=== PATIENT | female | born 1955 | race Caucasian/White ===

== ENCOUNTER 2018-05-12 20:39 | Inpatient (IN) | payer OTHER ==
[~2018-05-12] VITALS: Ht 162.6 cm; Wt 67.1 kg
[~2018-05-12 20:39] MED LIST: ALBU2.5V5 NEB; CHLO25TA10 PO; CHOL400C2 PO; CLON0.5T11 PO; DOXY150T PO; FAMO20TA5 PO; GUAI600T79 PO; METO-239 PO; NICO1PAT2 TP; OMEG300C PO; PRED-220 PO; PROM118S5 PO; VITA100T5 PO
[2018-05-12] MEDS ORDERED: ALBUTEROL SULFATE 2.5 MG/3 ML NEBU. CONT NEB ONE (21:00)
--- NOTE | 2018-05-12 21:00 | PHYS DOC ---
Adult General Chief Complaint Chief Complaint: SHORTNESS OF BREATH HPI HPI Patient is a 62 year old female with history of COPD, stage IV lung cancer currently not receiving chemotherapy or radiation therapy and awaiting health care consult presents with increased shortness of breath, and nonproductive cough not improved by routine breathing treatments at home. Patient reports increased home O2 requirements. Patient typically takes 2 days during daytime and feels increased to increase more. Denies fever, chills, nausea vomiting or sweats. Reports chronic right-sided chest wall pain secondary to lung CA. Patient is anticoagulated and on Xarelto. She is currently taking Augmentin for treatment of bronchitis. Patient's oncologist practices at [facility]. Patient does not currently have a take off man. Reports chronic edema with increased leg swelling predominantly on left. Patient's accompanied at bedside by her daughter and sister. [] Review of Systems Review of Systems Review symptoms as per history of present illness. All other systems were reviewed and found to be within normal limits, except as documented in this note. Current Medications Current Medications Current Medications Medications (Trade) Dose Ordered Sig/Jyoti Start Time Stop Time Status Last Admin Dose Admin Albuterol Sulfate (Ventolin Neb Soln) 10 mg 1X ONCE 05/12/18 21:00 05/12/18 21:01 DC 05/12/18 21:03 10 MG Info (CONTRAST GIVEN -- Rx MONITORING) 1 each PRN DAILY PRN 05/12/18 22:45 05/14/18 22:44 Iohexol (Omnipaque 350 Mg/ml) 100 ml 1X ONCE 05/12/18 22:45 05/12/18 22:46 DC Lorazepam (Ativan) 1 mg 1X ONCE 05/12/18 21:45 05/12/18 21:46 DC 05/12/18 21:46 1 MG Allergies Allergies Allergies Coded Allergies Type Severity Reaction Last Updated Verified Sulfa (Sulfonamide Antibiotics) Adverse Reaction Severe 03/11/14 Yes Physical Exam Physical Exam Constitutional: Well developed, chronically ill appearing, supplemental oxygen- dependent. [] HENT: Normocephalic, atraumatic, bilateral external ears normal, oropharynx moist, no oral exudates, nose normal. [] Eyes: PERRLA, EOMI, conjunctiva normal. [] Neck: Normal range of motion. [] Cardiovascular:Heart rate regular rhythm, no murmur, bilateral peripheral edema , significantly more swollen the left leg comparison to right [] Lungs & Thorax: Patient's nonlabored, mild tachypnea, coarse diminished breath sounds distally decreased on right, dry nonproductive cough.[] Abdomen: Bowel sounds normal, soft, no tenderness. [] Skin: Warm, dry. [] Back: No tenderness. [] Extremities: No tenderness, no obvious cellulitis. [] Neurologic: Alert and oriented X 3, normal motor function, normal sensory function, no focal deficits noted. [] Psychologic: Affect normal, judgement normal, mood normal. [] Current Patient Data Vital Signs Vital Signs Date Time Temp Pulse Resp B/P (MAP) Pulse Ox O2 Delivery O2 Flow Rate FiO2 05/12/18 21:51 113 150/77 (101) 100 Nasal Cannula 4.0 05/12/18 20:45 98.2 23 98.2 Lab Values Laboratory Tests Test 05/12/18 21:30 White Blood Count 4.7 x10^3/uL (4.0-11.0) Red Blood Count 3.77 x10^6/uL (3.50-5.40) Hemoglobin 10.4 g/dL (12.0-15.5) L Hematocrit 32.1 % (36.0-47.0) L Mean Corpuscular Volume 85 fL (79-100) Mean Corpuscular Hemoglobin 28 pg (25-35) Mean Corpuscular Hemoglobin Concent 33 g/dL (31-37) Red Cell Distribution Width 15.7 % (11.5-14.5) H Platelet Count 189 x10^3/uL (140-400) Neutrophils (%) (Auto) 70 % (31-73) Lymphocytes (%) (Auto) 17 % (24-48) L Monocytes (%) (Auto) 10 % (0-9) H Eosinophils (%) (Auto) 3 % (0-3) Basophils (%) (Auto) 1 % (0-3) Neutrophils # (Auto) 3.3 x10^3uL (1.8-7.7) Lymphocytes # (Auto) 0.8 x10^3/uL (1.0-4.8) L Monocytes # (Auto) 0.5 x10^3/uL (0.0-1.1) Eosinophils # (Auto) 0.1 x10^3/uL (0.0-0.7) Basophils # (Auto) 0.0 x10^3/uL (0.0-0.2) Sodium Level 139 mmol/L (136-145) Potassium Level 3.4 mmol/L (3.5-5.1) L Chloride Level 99 mmol/L (98-107) Carbon Dioxide Level 31 mmol/L (21-32) Anion Gap 9 (6-14) Blood Urea Nitrogen 10 mg/dL (7-20) Creatinine 0.7 mg/dL (0.6-1.0) Estimated GFR (Cockcroft-Gault) 84.2 BUN/Creatinine Ratio 14 (6-20) Glucose Level 97 mg/dL (70-99) Calcium Level 10.4 mg/dL (8.5-10.1) H Total Bilirubin 0.5 mg/dL (0.2-1.0) Aspartate Amino Transferase (AST) 49 U/L (15-37) H Alanine Aminotransferase (ALT) 38 U/L (14-59) Alkaline Phosphatase 106 U/L (46-116) Troponin I Quantitative < 0.017 ng/mL (0.000-0.055) IB-Ajg-I-Type Natriuretic Peptide 233 pg/mL (0-124) H Total Protein 7.8 g/dL (6.4-8.2) Albumin 3.2 g/dL (3.4-5.0) L Albumin/Globulin Ratio 0.7 (1.0-1.7) L Laboratory Tests 05/12/18 21:30 Laboratory Tests 05/12/18 21:30 EKG EKG [EKG: Reviewed] Radiology/Procedures Radiology/Procedures [Chest x-ray: Pulmonary mass right lung rios per radiology report CT angio chest: Canceled] due to patient's poor tolerance of lying supine Course & Med Decision Making Course & Med Decision Making Pertinent Labs and Imaging studies reviewed. (See chart for details) [COPD exacerbation with progression of underlying tumor burden. Concern for possible complications including post obstructive pneumonia, pulmonary embolus, etc... However, patient was not adequately able to assessed due to intolerance of CT. . Antibiotics given. Patient will be continued and Xarelto. Hospitalist service to admit with beta pulmonology consult in a.m. Courtesy bridge orders provided. Dragon Disclaimer Dragon Disclaimer This electronic medical record was generated, in whole or in part, using a voice recognition dictation system. Departure Departure Impression: Primary Impression: COPD exacerbation Additional Impression: Lung cancer Disposition: ADMITTED INPATIENT Admitting Physician: Other Condition: GUARDED (Dr. Lamar) Referrals: ALIDA SOSA (PCP) Problem Qualifiers ABNER AREVALO DO May 12, 2018 21:00
--- NOTE | 2018-05-12 21:02 | RAD ---
Indication:SOA, CHEST PAIN TECHNIQUE:Portable AP chest X-ray COMPARISON:CT chest from 03/08/2014 FINDINGS: Right chest wall Chemo-Port is seen with its tip in the SVC. Heart is normal in size. Large right suprahilar mass is again seen. Lungs are hyperinflated. Diffuse interstitial opacities are seen in the right lung. No pneumothorax or large. Effusion. Visualized bony thorax within normal limits. IMPRESSION: 1. Redemonstration of right suprahilar mass. 2. Trace right pleural effusion. 3. Interstitial opacities in the right lung may be secondary to lymphangitic spread of malignancy, edema or infection. Electronically signed by: Raymundo Brown DO (05/12/2018 8:59 PM) [facility]
[2018-05-12 21:40] LABS: BASO % 1 % (0-3); EOS # 0.1 x10^3/uL (0.0-0.7); EOS % 3 % (0-3); HEMATOCRIT 32.1 % (36.0-47.0); HEMOGLOBIN 10.4 g/dL (12.0-15.5); LYMPH # 0.8 x10^3/uL (1.0-4.8); LYMPH % 17 % (24-48); MEAN CORPUSCULAR HEMOGLOBIN 28 pg (25-35); MEAN CORPUSCULAR HGB CONC 33 g/dL (31-37); MEAN CORPUSCULAR VOLUME 85 fL (79-100); MONO # 0.5 x10^3/uL (0.0-1.1); MONO % 10 % (0-9); NEUT # 3.3 x10^3uL (1.8-7.7); NEUT % 70 % (31-73); PLATELET COUNT 189 x10^3/uL (140-400); RED BLOOD COUNT 3.77 x10^6/uL (3.50-5.40); RED CELL DISTRIBUTION WIDTH 15.7 % (11.5-14.5); WHITE BLOOD COUNT 4.7 x10^3/uL (4.0-11.0)
[2018-05-12] MEDS ORDERED: LORazepam 1 MG TABLET PO ONE (21:45)
[2018-05-12 21:48] LABS: CALCIUM 10.4 mg/dL (8.5-10.1); CREATININE 0.7 mg/dL (0.6-1.0); GFR 84.2; POTASSIUM 3.4 mmol/L (3.5-5.1)
[2018-05-12 21:54] LABS: ALBUMIN 3.2 g/dL (3.4-5.0); ALBUMIN/GLOBULIN RATIO 0.7 (1.0-1.7); TOTAL BILIRUBIN 0.5 mg/dL (0.2-1.0); TOTAL PROTEIN 7.8 g/dL (6.4-8.2)
[2018-05-12] MEDS ORDERED: CONTRAST GIVEN. MC PRN (22:45)
[2018-05-12] MEDS ORDERED: IOHEXOL 350 MG/ML 100 ML VIAL. IV ONE (22:45)
[2018-05-12] MEDS ORDERED: DOXYCYCLINE HYCLATE 100 MG in IV DEXTROSE 5% 100ML 100 ML IV ONE (23:45)
[2018-05-12] MEDS ORDERED: ONDANSETRON PF 4 MG/2 ML VIAL. IV PRN (23:45)
[2018-05-13] VITALS (7 sets, daily range): BP systolic 107–172; BP diastolic 63–91
[2018-05-13] MEDS: IV NORMAL SALINE 1000ML BAG 1,000 ML IV SCH ×2 (00:56→12:38)
[2018-05-13] MEDS: IPRATRPIUM/ALBUTEROL 0.5/2.5MG 3 ML NEBU. NEB SCH ×6 (02:28→20:41)
[2018-05-13] MEDS ORDERED: BUDE0.5A IH (02:38)
[2018-05-13] MEDS ORDERED: IBUP-1027 PO (02:38)
[2018-05-13] MEDS ORDERED: GUAI600T47 PO (02:38)
[2018-05-13] MEDS ORDERED: RIVA20TA2 PO (02:38)
[2018-05-13] MEDS ORDERED: AMLO5TAB10 PO (02:38)
[2018-05-13] MEDS ORDERED: LACT1CAP6 PO (02:38)
[2018-05-13] MEDS ORDERED: ACET500T68 PO (02:38)
[2018-05-13] MEDS ORDERED: CHOL20009 PO (02:38)
[2018-05-13] MEDS ORDERED: FURO20TA3 PO (02:38)
[2018-05-13] MEDS ORDERED: LORA1TAB PO (02:38)
[2018-05-13] MEDS ORDERED: POTA20LI27 AC (02:38)
[2018-05-13] MEDS ORDERED: ATOR10TA60 PO (02:38)
[2018-05-13] MEDS ORDERED: METF500T16 PO (02:38)
[2018-05-13] MEDS ORDERED: OXYC5TAB4 PO (02:38)
[2018-05-13] MEDS ORDERED: LOSA-73 PO (02:38)
[2018-05-13] MEDS ORDERED: ALBU2.5V8 INH (02:38)
[2018-05-13] MEDS: methylPREDNISolone SOD SUCC PF 40 MG/ML VIAL. IV SCH ×3 (06:21→21:22)
[2018-05-13] MEDS ORDERED: ALBUTEROL SULFATE 2.5 MG/3 ML NEBU. NEB PRN ×2 (07:45→08:00)
[2018-05-13] MEDS ORDERED: IPRATRPIUM/ALBUTEROL 0.5/2.5MG 3 ML NEBU. NEB ONE (08:00)
[2018-05-13] MEDS ORDERED: methylPREDNISolone SOD SUCC PF 125 MG/2 ML VIAL. IV ONE (08:00)
[2018-05-13] MEDS: FUROSEMIDE 20 MG/2 ML VIAL. IVP SCH ×2 (08:01→14:20)
[2018-05-13] MEDS: DOXYCYCLINE HYCLATE 100 MG in IV DEXTROSE 5% 100ML 100 ML IV SCH ×2 (08:05→21:22)
--- NOTE | 2018-05-13 08:06 | PDOC ---
Provider Note Provider Note [id number] acute on chronic resp fail abnl cxr ae of copd acute bronchitis see orders WILLOW JEFFERSON MD May 13, 2018 08:06
--- NOTE | 2018-05-13 08:34 | CONS ---
DATE OF CONSULTATION: 05/13/2018 I was asked to see this 62-year-old lady for acute on chronic respiratory failure. HISTORY OF PRESENT ILLNESS: She has a history of [id number]-[id number] smoking, continues to smoke about 1 pack per day. She was diagnosed with lung cancer in 2014, had chemo and radiation. She had recurrence of her lung cancer about a year ago. She has been followed with oncologist at [facility]. She was given chemotherapy, which did not work. Then, she was enrolled in a trial, which did not work. She is off any treatment now. Palliative care consult was recommended. She has had increased cough. She is not able to cough up sputum. She denies pain. She has shortness of breath. She is on oxygen 3 liters per minute via nasal cannula continuously at home. She denies runny nose, nasal congestion, or gastroesophageal reflux symptoms. She has been on Xarelto for SVC clot. She has had left lower extremity edema for some time. PAST MEDICAL HISTORY: Stage 4 lung cancer, COPD, hypertension, diabetes mellitus. ALLERGIES: SULFA. MEDICATIONS: Currently, she is on DuoNeb q.i.d., doxycycline, Solu-Medrol 40 mg every 8 hours. SOCIAL HISTORY: History of 22-omtc-hzft smoking, continues to smoke 1 pack per day. FAMILY HISTORY: Mother had lung cancer. REVIEW OF SYSTEMS: As mentioned as above, other systems otherwise negative. PHYSICAL EXAMINATION: GENERAL: This is a frail lady. VITAL SIGNS: Her O2 saturation on 4 liters of oxygen is 96%, respiratory rate 22, heart rate 100, blood pressure 125/68, temperature 97.6. HEENT: Normocephalic, atraumatic. Pupils are equal, round, reactive to light. Throat is clear. Nose is clear. NECK: There is no lymphadenopathy or thyromegaly. CARDIOVASCULAR: Regular rate and rhythm. PMI is nondisplaced. CHEST: Inspection is normal. LUNGS: There is bilateral end-expiratory wheezing, dullness at the right base, rhonchi. ABDOMEN: Soft. Bowel sounds are good. There is no mass. EXTREMITIES: There is left lower extremity edema. NEUROLOGIC: Alert and oriented. SKIN: Warm with chronic changes. I reviewed the following lab data: Chest x-ray shows right suprahilar mass, small right pleural effusion, infiltrate in right lung. WBC 4.7, hemoglobin 10.4, platelet 189. Sodium 139, potassium 3.4, chloride 99, CO2 of 31, glucose 97, BUN 10, creatinine 0.7. BNP 233. Troponin less than 0.017. IMPRESSION: 1. Acute on chronic respiratory failure secondary to acute exacerbation of chronic obstructive pulmonary disease, acute bronchitis, progressing lung cancer versus others. 2. Abnormal chest x-ray. 3. Acute exacerbation of chronic obstructive pulmonary disease. 4. Acute bronchitis. 5. Tobacco habituation. 6. Hypertension. 7. Diabetes mellitus. PLAN AND RECOMMENDATION: 1. Titrate FiO2 to keep O2 saturation 92%. 2. I will increase bronchodilators to every 4 hours. 3. Add inhaled corticosteroid. 4. I gave her Solu-Medrol 80 mg IV 1 dose. We will continue 40 mg every 4 hours. 5. Continue doxycycline and Rocephin. 6. Continue Xarelto. 7. Pepcid for stress ulcer prophylaxis. 8. stop smoking for ever. I had a long discussion with her and her daughter. She does not want intubation or BiPAP. They are agreeable with palliative care. Her most concern is cough, which we may consider codeine versus morphine p.r.n. Thank you very much for allowing me to participate in the care of this very nice lady. WILLOW JEFFERSON M.D. BEKAH BARRIOS/johny JOB#: [id number] / [id number] ALBA
[2018-05-13] MEDS: cefTRIAXone IV Push 1 GM VIAL. IVP SCH (10:02)
--- NOTE | 2018-05-13 11:06 | HP ---
ADMIT DATE: 05/13/2018 CHIEF COMPLAINT: Shortness of breath. HISTORY OF PRESENT ILLNESS: The patient is a pleasant 62-year-old female who has lung cancer. She has undergone chemotherapy and radiation therapy. It has been occurring for several years. She is supposed to follow up at to see if she might qualify for more chemo, but actually the patient is short of breath, so she came to our facility. She is requesting comfort measures only. I discussed the case with the family and the ER physician. We are going to give the patient some nebulized treatments and oxygen and consult [facility], which the family has chosen. PAST MEDICAL HISTORY: Lung cancer, COPD, hypertension, diabetes. ALLERGIES: SULFA. FAMILY HISTORY: Coronary artery disease. SOCIAL HISTORY: She quit smoking. She used to smoke heavily. No drinking or drugs. MEDICATIONS: Reviewed. She is on 19 including albuterol, nicotine patch, Xarelto, atorvastatin, fish oil, amlodipine, losartan, ibuprofen, oxycodone, acetaminophen, lorazepam, potassium, Lasix, Mucinex, probiotics, metformin, and vitamin D. REVIEW OF SYSTEMS: Unable to obtain. The patient is too weak and could not talk hardly, but she does complain of some shortness of breath, but then falls back asleep. PHYSICAL EXAMINATION: VITAL SIGNS: Temperature 97.6, pulse 100, respirations 22, blood pressure 125/68, O2 sat 95% on 4 liters. GENERAL: She is sleeping. She awakens. She has very flat affect, cannot really talk much at all. HEART: Distant S1, S2, tachycardic. LUNGS: Coarse on the right. ABDOMEN: Soft, positive bowel sounds. EXTREMITIES: 1+ edema. SKIN: No rashes. PSYCHIATRIC: She is depressed. VASCULAR: Good capillary refill. ENDOCRINE: No thyromegaly. LYMPHATICS: No cervical nodes. HEMATOPOIETIC: No bruising. PSYCHIATRIC: She is depressed. LABORATORY DATA: White count 4.7, hemoglobin 10.4, platelets 189. Electrolytes are normal other than potassium of 3.4, calcium is high at 10.4. Troponin is 0. BNP 233, albumin 3.2. Chest x-ray shows right suprahilar mass, trace pleural effusion, interstitial opacities suspicious for spread of disease. ASSESSMENT AND PLAN: Probable early failure to thrive in an elderly female who has probable metastatic lung cancer. The patient has been admitted. We will give her DuoNeb, oxygen. We will try to resume most of her home meds, cardiac monitoring. Consult hospice, consult Pulmonary Medicine, inhaled corticosteroids, IV Solu-Medrol, empiric IV doxycycline and Rocephin. Gastrointestinal prophylaxis, deep vein thrombosis prophylaxis. PROGNOSIS: Long-term is terminal, suspect she has perhaps less than 6 months. TOTAL TIME: 33 minutes. CYNDI CHILDERS DO DR: LACHO/johny JOB#: [id number] / [id number]
[2018-05-13] MEDS: BUDESONIDE 0.5 MG/2 ML NEBU. NEB SCH ×2 (11:44→20:41)
--- NOTE | 2018-05-13 11:59 | NUR ---
After speaking with Pt., her family and MD, this nurse has initiated a Hospice consult to eval and treat Pt for home care. Family had initially requested [facility] but later requested [facility]. This nurse has contacted the latter at [phone], spoke with Maria Eugenia who requested H&P and MAR to be faxed. Will await further communication with [facility] after records are reviewed by them.
[2018-05-13] MEDS ORDERED: IBUPROFEN 400 MG TABLET. PO PRN (12:00)
[2018-05-13] MEDS ORDERED: ACETAMINOPHEN 500 MG TABLET PO PRN (12:00)
[2018-05-13] MEDS: LOSARTAN POTASSIUM 25 MG TABLET. PO SCH (12:10)
[2018-05-13] MEDS: amLODIPine BESYLATE 5 MG TABLET PO SCH (12:10)
[2018-05-13] MEDS: POTASSIUM CHLORIDE 20 MEQ/15 ML ORAL LIQUID. PO SCH (12:37)
[2018-05-13] MEDS: CHOLECALCIFEROL (VITAMIN D3) 1,000 UNIT TABLET PO SCH (12:37)
[2018-05-13] MEDS: OMEGA-3 FATTY ACIDS/FISH OIL 1,000 MG CAPSULE. PO SCH (12:37)
[2018-05-13] MEDS: LACTOBACILLUS RHAMNOSUS GG 1 CAPSULE. PO SCH ×2 (12:37→21:22)
[2018-05-13] MEDS: NICOTINE 14MG PATCH. TD SCH (12:38)
[2018-05-13] MEDS ORDERED: POTASSIUM CHLORIDE 20 MEQ TABLET.ER. PO SCH (13:00)
--- NOTE | 2018-05-13 13:45 | NUR ---
RN form [facility] called this RN to inform that someone from their team will be coming over to the hospital tomorrow to speak with Pt and family. Time will be arranged by Hospice House and Pt's sister will be contacted.
[2018-05-13] MEDS: ANTI-COAG MONITOR BY PHARMACY. MC PRN (15:13)
[2018-05-13] MEDS: RIVAROXABAN 10 MG TABLET. PO SCH (17:04)
[2018-05-13] MEDS: BENZONATATE 100 MG CAPSULE. PO SCH (21:22)
[2018-05-13] MEDS: ATORVASTATIN CALCIUM 10 MG TABLET. PO SCH (21:22)
[2018-05-14 03:37] VITALS: BP 121/68
[2018-05-14] MEDS: IPRATRPIUM/ALBUTEROL 0.5/2.5MG 3 ML NEBU. NEB SCH ×6 (04:18→20:38)
[2018-05-14 05:26] LABS: BASO % 0 % (0-3); EOS % 0 % (0-3); HEMATOCRIT 34.9 % (36.0-47.0); HEMOGLOBIN 11.4 g/dL (12.0-15.5); LYMPH # 0.4 x10^3/uL (1.0-4.8); LYMPH % 7 % (24-48); MEAN CORPUSCULAR HEMOGLOBIN 28 pg (25-35); MEAN CORPUSCULAR HGB CONC 33 g/dL (31-37); MEAN CORPUSCULAR VOLUME 85 fL (79-100); MONO # 0.2 x10^3/uL (0.0-1.1); MONO % 2 % (0-9); NEUT # 5.6 x10^3uL (1.8-7.7); NEUT % 90 % (31-73); PLATELET COUNT 191 x10^3/uL (140-400); RED BLOOD COUNT 4.11 x10^6/uL (3.50-5.40); RED CELL DISTRIBUTION WIDTH 15.6 % (11.5-14.5); WHITE BLOOD COUNT 6.2 x10^3/uL (4.0-11.0)
[2018-05-14 05:31] LABS: CALCIUM 9.9 mg/dL (8.5-10.1); CREATININE 0.7 mg/dL (0.6-1.0); GFR 84.2; POTASSIUM 3.8 mmol/L (3.5-5.1)
[2018-05-14] MEDS: methylPREDNISolone SOD SUCC PF 40 MG/ML VIAL. IV SCH ×3 (06:10→20:51)
[2018-05-14] MEDS: oxyCODONE IR 5 MG TABLET PO PRN (06:15)
[2018-05-14 07:00] VITALS: BP 117/67
[2018-05-14] MEDS: BUDESONIDE 0.5 MG/2 ML NEBU. NEB SCH ×2 (07:40→20:38)
[2018-05-14 08:07] LABS: % BANDS 3 % (0-9); % LYMPHS 6 % (24-48); % MONOS 2 % (0-10); % SEGS 89 % (35-66)
[2018-05-14 08:08] LABS: PLT ESTIMATE ADEQUATE (ADEQUATE)
[2018-05-14 08:09] LABS: ANISOCYTOSIS SLIGHT
[2018-05-14] MEDS: OMEGA-3 FATTY ACIDS/FISH OIL 1,000 MG CAPSULE. PO SCH (09:00)
[2018-05-14] MEDS: POTASSIUM CHLORIDE 20 MEQ/15 ML ORAL LIQUID. PO SCH (09:06)
[2018-05-14] MEDS: CHOLECALCIFEROL (VITAMIN D3) 1,000 UNIT TABLET PO SCH (09:08)
[2018-05-14] MEDS: LACTOBACILLUS RHAMNOSUS GG 1 CAPSULE. PO SCH ×2 (09:09→20:51)
[2018-05-14] MEDS: LOSARTAN POTASSIUM 25 MG TABLET. PO SCH (09:10)
[2018-05-14] MEDS: FUROSEMIDE 20 MG/2 ML VIAL. IVP SCH ×2 (09:11→15:13)
[2018-05-14] MEDS: DOXYCYCLINE HYCLATE 100 MG in IV DEXTROSE 5% 100ML 100 ML IV SCH ×2 (09:11→21:00)
[2018-05-14] MEDS: cefTRIAXone IV Push 1 GM VIAL. IVP SCH (09:12)
[2018-05-14] MEDS: NICOTINE 14MG PATCH. TD SCH (09:16)
[2018-05-14] MEDS: BENZONATATE 100 MG CAPSULE. PO SCH ×3 (09:16→20:51)
[2018-05-14] MEDS: amLODIPine BESYLATE 5 MG TABLET PO SCH (09:20)
[2018-05-14 11:13] VITALS: BP 132/71
[2018-05-14] MEDS: ANTI-COAG MONITOR BY PHARMACY. MC PRN (11:56)
--- NOTE | 2018-05-14 12:32 | PDOC ---
PULMONARY PROGRESS NOTES Subjective no increase soa Vitals Vital Signs Date Time Temp Pulse Resp B/P (MAP) Pulse Ox O2 Delivery O2 Flow Rate FiO2 05/14/18 11:34 Nasal Cannula 3.0 05/14/18 11:13 97.6 114 24 132/71 (91) 98 97.6 General: Alert, Oriented X4 HEENT: Other Lungs: Other (decrease bs right) Cardiovascular: S1, S2 Abdomen: Soft, Non-tender Neuro Exam: Alert Extremities: No Edema Skin: Warm Labs Laboratory Tests Test 05/12/18 21:30 05/14/18 04:13 White Blood Count 4.7 x10^3/uL (4.0-11.0) 6.2 x10^3/uL (4.0-11.0) Red Blood Count 3.77 x10^6/uL (3.50-5.40) 4.11 x10^6/uL (3.50-5.40) Hemoglobin 10.4 g/dL (12.0-15.5) 11.4 g/dL (12.0-15.5) Hematocrit 32.1 % (36.0-47.0) 34.9 % (36.0-47.0) Mean Corpuscular Volume 85 fL (79-100) 85 fL (79-100) Mean Corpuscular Hemoglobin 28 pg (25-35) 28 pg (25-35) Mean Corpuscular Hemoglobin Concent 33 g/dL (31-37) 33 g/dL (31-37) Red Cell Distribution Width 15.7 % (11.5-14.5) 15.6 % (11.5-14.5) Platelet Count 189 x10^3/uL (140-400) 191 x10^3/uL (140-400) Neutrophils (%) (Auto) 70 % (31-73) 90 % (31-73) Lymphocytes (%) (Auto) 17 % (24-48) 7 % (24-48) Monocytes (%) (Auto) 10 % (0-9) 2 % (0-9) Eosinophils (%) (Auto) 3 % (0-3) 0 % (0-3) Basophils (%) (Auto) 1 % (0-3) 0 % (0-3) Neutrophils # (Auto) 3.3 x10^3uL (1.8-7.7) 5.6 x10^3uL (1.8-7.7) Lymphocytes # (Auto) 0.8 x10^3/uL (1.0-4.8) 0.4 x10^3/uL (1.0-4.8) Monocytes # (Auto) 0.5 x10^3/uL (0.0-1.1) 0.2 x10^3/uL (0.0-1.1) Eosinophils # (Auto) 0.1 x10^3/uL (0.0-0.7) 0.0 x10^3/uL (0.0-0.7) Basophils # (Auto) 0.0 x10^3/uL (0.0-0.2) 0.0 x10^3/uL (0.0-0.2) Sodium Level 139 mmol/L (136-145) 140 mmol/L (136-145) Potassium Level 3.4 mmol/L (3.5-5.1) 3.8 mmol/L (3.5-5.1) Chloride Level 99 mmol/L (98-107) 101 mmol/L (98-107) Carbon Dioxide Level 31 mmol/L (21-32) 28 mmol/L (21-32) Anion Gap 9 (6-14) 11 (6-14) Blood Urea Nitrogen 10 mg/dL (7-20) 14 mg/dL (7-20) Creatinine 0.7 mg/dL (0.6-1.0) 0.7 mg/dL (0.6-1.0) Estimated GFR (Cockcroft-Gault) 84.2 84.2 BUN/Creatinine Ratio 14 (6-20) Glucose Level 97 mg/dL (70-99) 125 mg/dL (70-99) Calcium Level 10.4 mg/dL (8.5-10.1) 9.9 mg/dL (8.5-10.1) Total Bilirubin 0.5 mg/dL (0.2-1.0) Aspartate Amino Transf (AST/SGOT) 49 U/L (15-37) Alanine Aminotransferase (ALT/SGPT) 38 U/L (14-59) Alkaline Phosphatase 106 U/L (46-116) Troponin I Quantitative < 0.017 ng/mL (0.000-0.055) SS-Ktp-A-Type Natriuretic Peptide 233 pg/mL (0-124) Total Protein 7.8 g/dL (6.4-8.2) Albumin 3.2 g/dL (3.4-5.0) Albumin/Globulin Ratio 0.7 (1.0-1.7) Segmented Neutrophils % 89 % (35-66) Band Neutrophils % 3 % (0-9) Lymphocytes % 6 % (24-48) Monocytes % 2 % (0-10) Platelet Estimate Adequate (ADEQUATE) Large Platelets Present Anisocytosis Slight Laboratory Tests Test 05/14/18 04:13 White Blood Count 6.2 x10^3/uL (4.0-11.0) Red Blood Count 4.11 x10^6/uL (3.50-5.40) Hemoglobin 11.4 g/dL (12.0-15.5) Hematocrit 34.9 % (36.0-47.0) Mean Corpuscular Volume 85 fL (79-100) Mean Corpuscular Hemoglobin 28 pg (25-35) Mean Corpuscular Hemoglobin Concent 33 g/dL (31-37) Red Cell Distribution Width 15.6 % (11.5-14.5) Platelet Count 191 x10^3/uL (140-400) Neutrophils (%) (Auto) 90 % (31-73) Lymphocytes (%) (Auto) 7 % (24-48) Monocytes (%) (Auto) 2 % (0-9) Eosinophils (%) (Auto) 0 % (0-3) Basophils (%) (Auto) 0 % (0-3) Neutrophils # (Auto) 5.6 x10^3uL (1.8-7.7) Lymphocytes # (Auto) 0.4 x10^3/uL (1.0-4.8) Monocytes # (Auto) 0.2 x10^3/uL (0.0-1.1) Eosinophils # (Auto) 0.0 x10^3/uL (0.0-0.7) Basophils # (Auto) 0.0 x10^3/uL (0.0-0.2) Segmented Neutrophils % 89 % (35-66) Band Neutrophils % 3 % (0-9) Lymphocytes % 6 % (24-48) Monocytes % 2 % (0-10) Platelet Estimate Adequate (ADEQUATE) Large Platelets Present Anisocytosis Slight Sodium Level 140 mmol/L (136-145) Potassium Level 3.8 mmol/L (3.5-5.1) Chloride Level 101 mmol/L (98-107) Carbon Dioxide Level 28 mmol/L (21-32) Anion Gap 11 (6-14) Blood Urea Nitrogen 14 mg/dL (7-20) Creatinine 0.7 mg/dL (0.6-1.0) Estimated GFR (Cockcroft-Gault) 84.2 Glucose Level 125 mg/dL (70-99) Calcium Level 9.9 mg/dL (8.5-10.1) Medications Active Scripts Medications Dose Route/Sig Max Daily Dose Days Date Category Xarelto (Rivaroxaban) 20 Mg Tablet 20 Mg PO DAILY 05/13/18 Reported Vitamin D3 (Cholecalciferol (Vitamin D3)) 2,000 Unit Capsule 2,000 Unit PO DAILY 05/13/18 Reported Potassium Chloride Oral Liquid (Potassium Chloride) 20 Meq/15 Ml Liquid 20 Meq AC DAILY 05/13/18 Reported Oxycodone Hcl Immed.release (Oxycodone Hcl) 5 Mg Tablet 5 Mg PO PRN Q3HRS PRN 05/13/18 Reported Metformin Hcl 500 Mg Tablet 500 Mg PO DAILYWBKFT 05/13/18 Reported Losartan Potassium 50 Mg Tablet 25 Mg PO DAILY 05/13/18 Reported Lorazepam 1 Mg Tablet 1 Mg PO TID 05/13/18 Reported Probiotic (Lactobacillus Acidophilus) 1 Each Capsule 1 Each PO BID 05/13/18 Reported Ibuprofen 400 Mg Tablet 400 Mg PO PRN Q6HRS PRN 05/13/18 Reported Mucinex (Guaifenesin) 600 Mg Tablet.er 600 Mg PO TID 05/13/18 Reported Furosemide 20 Mg Tablet 20 Mg PO DAILY 05/13/18 Reported Budesonide 0.5 Mg/2 Ml Ampul.neb 0.5 Mg IH BID 05/13/18 Reported Atorvastatin Calcium 10 Mg Tablet 10 Mg PO HS 05/13/18 Reported Amlodipine Besylate 5 Mg Tablet 5 Mg PO DAILY 05/13/18 Reported Proair Hfa Inhaler (Albuterol Sulfate) 8.5 Gm Hfa.aer.ad 2 Puff INH PRN Q6HRS PRN 05/13/18 Reported Acetaminophen 500 Mg Tablet 1,000 Mg PO PRN Q6HRS PRN 05/13/18 Reported Nicotine Patch (Nicotine) 1 Each Patch.td24 1 Patch TP DAILY 03/11/14 Reported Albuterol Sulfate Neb Soln (Albuterol Sulfate) 2.5 Mg/3 Ml Vial.neb 1 Vial NEB PRN Q2HR PRN 03/11/14 Reported Fish Oil ([place]-3 Fatty Acids) 300 Mg Capsule 300 Mg PO DAILY 03/08/14 Reported Impression . 1. Acute on chronic respiratory failure secondary to acute exacerbation of chronic obstructive pulmonary disease, progressing lung cancer versus , possible post- obstructive pneumonia 2. Abnormal chest x-ray. large right supra hilar mass/ lymphangitc spread suspected 3. Acute exacerbation of chronic obstructive pulmonary disease. 4. Acute bronchitis. 5. Tobacco habituation. 6. Hypertension. 7. Diabetes mellitus. Plan . 1. Titrate FiO2 to keep O2 saturation 92%. 2. bronchodilators t 3. inhaled corticosteroid. 4. Solu-Medrol 5. Continue doxycycline and Rocephin. 6. Continue Xarelto. 7. Pepcid for stress ulcer prophylaxis. 8. stop smoking for ever. I had a long discussion with her and her daughter. She does not want intubation or BiPAP. They are agreeable with palliative care. Oncology opinion d/w JANICE BARRERA MD May 14, 2018 12:32
--- NOTE | 2018-05-14 13:25 | PDOC ---
PROGRESS NOTES Chief Complaint Chief Complaint COPD exacerbation History of Present Illness History of Present Illness Patient sitting in bedside chair, with daughter and grandchildren in the room. She has been experiencing some heartburn and cough. Answered patient's and family's questions regarding her lung disease. They will be meeting with [facility] today at 3pm. Patient states that she wants to know if she has other treatment options available to her and notes she has a follow up appointment scheduled on Tuesday with oncology at . Vitals Vitals Vital Signs Date Time Temp Pulse Resp B/P (MAP) Pulse Ox O2 Delivery O2 Flow Rate FiO2 05/14/18 11:34 Nasal Cannula 3.0 05/14/18 11:13 97.6 114 24 132/71 (91) 98 97.6 Physical Exam General: Alert, Oriented X3, Cooperative, No acute distress Heart: Regular rate, Normal S1, Normal S2, No murmurs Lungs: Other (decrease bs right) Abdomen: Normal bowel sounds, Soft, No tenderness Extremities: No edema, Normal pulses, No tenderness/swelling Skin: No rashes, No breakdown, No significant lesion Labs LABS Laboratory Tests Test 05/14/18 04:13 White Blood Count 6.2 x10^3/uL (4.0-11.0) Red Blood Count 4.11 x10^6/uL (3.50-5.40) Hemoglobin 11.4 g/dL (12.0-15.5) Hematocrit 34.9 % (36.0-47.0) Mean Corpuscular Volume 85 fL (79-100) Mean Corpuscular Hemoglobin 28 pg (25-35) Mean Corpuscular Hemoglobin Concent 33 g/dL (31-37) Red Cell Distribution Width 15.6 % (11.5-14.5) Platelet Count 191 x10^3/uL (140-400) Neutrophils (%) (Auto) 90 % (31-73) Lymphocytes (%) (Auto) 7 % (24-48) Monocytes (%) (Auto) 2 % (0-9) Eosinophils (%) (Auto) 0 % (0-3) Basophils (%) (Auto) 0 % (0-3) Neutrophils # (Auto) 5.6 x10^3uL (1.8-7.7) Lymphocytes # (Auto) 0.4 x10^3/uL (1.0-4.8) Monocytes # (Auto) 0.2 x10^3/uL (0.0-1.1) Eosinophils # (Auto) 0.0 x10^3/uL (0.0-0.7) Basophils # (Auto) 0.0 x10^3/uL (0.0-0.2) Segmented Neutrophils % 89 % (35-66) Band Neutrophils % 3 % (0-9) Lymphocytes % 6 % (24-48) Monocytes % 2 % (0-10) Platelet Estimate Adequate (ADEQUATE) Large Platelets Present Anisocytosis Slight Sodium Level 140 mmol/L (136-145) Potassium Level 3.8 mmol/L (3.5-5.1) Chloride Level 101 mmol/L (98-107) Carbon Dioxide Level 28 mmol/L (21-32) Anion Gap 11 (6-14) Blood Urea Nitrogen 14 mg/dL (7-20) Creatinine 0.7 mg/dL (0.6-1.0) Estimated GFR (Cockcroft-Gault) 84.2 Glucose Level 125 mg/dL (70-99) Calcium Level 9.9 mg/dL (8.5-10.1) Review of Systems Review of Systems as per above Assessment and Plan Assessmemt and Plan Assessment: Acute on chronic respiratory failure Acute COPD exacerbation Lung cancer - right suprahilar mass with suspected lymphangitic spread Dyspepsia Dysphagia Constipation Hypertension, history of Diabetes mellitus, history of Tobaccoism Plan: Pulm: duonebs, inhaled corticosteroid, Solumedrol - appreciate recs Consult GI for dysphagia Protonix 40 mg IV daily for dyspepsia Bowel Regimen Antibiotics: Levofloxacin 750 mg IV x1 - 05/12/18 Doxycycline 100 mg IV BID - started 05/13/18 Rocephin 1 gm IV daily - started 05/13/18 Micro: Blood culture (05/12/18) - no growth to date [employer] labs DVT ppx - Xarelto PT/OT Counseled on smoking cessation Meeting with [facility] today at 3 pm for information meeting Palliative care consulted She does not want intubation or BiPAP Comment Review of Relevant I have reviewed the following items rita (where applicable) has been applied. Labs Laboratory Tests Test 05/12/18 21:30 05/14/18 04:13 White Blood Count 4.7 x10^3/uL (4.0-11.0) 6.2 x10^3/uL (4.0-11.0) Red Blood Count 3.77 x10^6/uL (3.50-5.40) 4.11 x10^6/uL (3.50-5.40) Hemoglobin 10.4 g/dL (12.0-15.5) 11.4 g/dL (12.0-15.5) Hematocrit 32.1 % (36.0-47.0) 34.9 % (36.0-47.0) Mean Corpuscular Volume 85 fL (79-100) 85 fL (79-100) Mean Corpuscular Hemoglobin 28 pg (25-35) 28 pg (25-35) Mean Corpuscular Hemoglobin Concent 33 g/dL (31-37) 33 g/dL (31-37) Red Cell Distribution Width 15.7 % (11.5-14.5) 15.6 % (11.5-14.5) Platelet Count 189 x10^3/uL (140-400) 191 x10^3/uL (140-400) Neutrophils (%) (Auto) 70 % (31-73) 90 % (31-73) Lymphocytes (%) (Auto) 17 % (24-48) 7 % (24-48) Monocytes (%) (Auto) 10 % (0-9) 2 % (0-9) Eosinophils (%) (Auto) 3 % (0-3) 0 % (0-3) Basophils (%) (Auto) 1 % (0-3) 0 % (0-3) Neutrophils # (Auto) 3.3 x10^3uL (1.8-7.7) 5.6 x10^3uL (1.8-7.7) Lymphocytes # (Auto) 0.8 x10^3/uL (1.0-4.8) 0.4 x10^3/uL (1.0-4.8) Monocytes # (Auto) 0.5 x10^3/uL (0.0-1.1) 0.2 x10^3/uL (0.0-1.1) Eosinophils # (Auto) 0.1 x10^3/uL (0.0-0.7) 0.0 x10^3/uL (0.0-0.7) Basophils # (Auto) 0.0 x10^3/uL (0.0-0.2) 0.0 x10^3/uL (0.0-0.2) Sodium Level 139 mmol/L (136-145) 140 mmol/L (136-145) Potassium Level 3.4 mmol/L (3.5-5.1) 3.8 mmol/L (3.5-5.1) Chloride Level 99 mmol/L (98-107) 101 mmol/L (98-107) Carbon Dioxide Level 31 mmol/L (21-32) 28 mmol/L (21-32) Anion Gap 9 (6-14) 11 (6-14) Blood Urea Nitrogen 10 mg/dL (7-20) 14 mg/dL (7-20) Creatinine 0.7 mg/dL (0.6-1.0) 0.7 mg/dL (0.6-1.0) Estimated GFR (Cockcroft-Gault) 84.2 84.2 BUN/Creatinine Ratio 14 (6-20) Glucose Level 97 mg/dL (70-99) 125 mg/dL (70-99) Calcium Level 10.4 mg/dL (8.5-10.1) 9.9 mg/dL (8.5-10.1) Total Bilirubin 0.5 mg/dL (0.2-1.0) Aspartate Amino Transf (AST/SGOT) 49 U/L (15-37) Alanine Aminotransferase (ALT/SGPT) 38 U/L (14-59) Alkaline Phosphatase 106 U/L (46-116) Troponin I Quantitative < 0.017 ng/mL (0.000-0.055) SI-Bsq-V-Type Natriuretic Peptide 233 pg/mL (0-124) Total Protein 7.8 g/dL (6.4-8.2) Albumin 3.2 g/dL (3.4-5.0) Albumin/Globulin Ratio 0.7 (1.0-1.7) Segmented Neutrophils % 89 % (35-66) Band Neutrophils % 3 % (0-9) Lymphocytes % 6 % (24-48) Monocytes % 2 % (0-10) Platelet Estimate Adequate (ADEQUATE) Large Platelets Present Anisocytosis Slight Laboratory Tests Test 05/14/18 04:13 White Blood Count 6.2 x10^3/uL (4.0-11.0) Red Blood Count 4.11 x10^6/uL (3.50-5.40) Hemoglobin 11.4 g/dL (12.0-15.5) Hematocrit 34.9 % (36.0-47.0) Mean Corpuscular Volume 85 fL (79-100) Mean Corpuscular Hemoglobin 28 pg (25-35) Mean Corpuscular Hemoglobin Concent 33 g/dL (31-37) Red Cell Distribution Width 15.6 % (11.5-14.5) Platelet Count 191 x10^3/uL (140-400) Neutrophils (%) (Auto) 90 % (31-73) Lymphocytes (%) (Auto) 7 % (24-48) Monocytes (%) (Auto) 2 % (0-9) Eosinophils (%) (Auto) 0 % (0-3) Basophils (%) (Auto) 0 % (0-3) Neutrophils # (Auto) 5.6 x10^3uL (1.8-7.7) Lymphocytes # (Auto) 0.4 x10^3/uL (1.0-4.8) Monocytes # (Auto) 0.2 x10^3/uL (0.0-1.1) Eosinophils # (Auto) 0.0 x10^3/uL (0.0-0.7) Basophils # (Auto) 0.0 x10^3/uL (0.0-0.2) Segmented Neutrophils % 89 % (35-66) Band Neutrophils % 3 % (0-9) Lymphocytes % 6 % (24-48) Monocytes % 2 % (0-10) Platelet Estimate Adequate (ADEQUATE) Large Platelets Present Anisocytosis Slight Sodium Level 140 mmol/L (136-145) Potassium Level 3.8 mmol/L (3.5-5.1) Chloride Level 101 mmol/L (98-107) Carbon Dioxide Level 28 mmol/L (21-32) Anion Gap 11 (6-14) Blood Urea Nitrogen 14 mg/dL (7-20) Creatinine 0.7 mg/dL (0.6-1.0) Estimated GFR (Cockcroft-Gault) 84.2 Glucose Level 125 mg/dL (70-99) Calcium Level 9.9 mg/dL (8.5-10.1) Microbiology 05/12/18 Blood Culture - Preliminary, Resulted NO GROWTH AFTER 1 DAY Medications Current Medications Albuterol Sulfate (Ventolin Neb Soln) 10 mg 1X ONCE CONT NEB Last administered on 05/12/18at 21:03; Start 05/12/18 at 21:00; Stop 05/12/18 at 21:01; Status DC Lorazepam (Ativan) 1 mg 1X ONCE PO Last administered on 05/12/18at 21:46; Start 05/12/18 at 21:45; Stop 05/12/18 at 21:46; Status DC Iohexol (Omnipaque 350 Mg/ml) 100 ml 1X ONCE IV ; Start 05/12/18 at 22:45; Stop 05/12/18 at 22:46; Status DC Info (CONTRAST GIVEN -- Rx MONITORING) 1 each PRN DAILY PRN MC SEE COMMENTS; Start 05/12/18 at 22:45; Stop 05/14/18 at 22:44 Levofloxacin/ Dextrose 150 ml @ 100 mls/hr 1X ONCE IV ; Start 05/12/18 at 23:45 ; Stop 05/12/18 at 23:45; Status DC Doxycycline Hyclate 100 mg/ Dextrose 100 ml @ 50 mls/hr 1X ONCE IV Last administered on 05/13/18at 00:56; Start 05/12/18 at 23:45; Stop 05/13/18 at 01:44; Status DC Ondansetron HCl (Zofran) 4 mg PRN Q8HRS PRN IV NAUSEA/VOMITING; Start 05/12/18 at 23:45; Stop 05/13/18 at 23:44; Status DC Sodium Chloride 1,000 ml @ 75 mls/hr [id number] IV Last administered on 05/13/18at 12:38; Start 05/12/18 at 23:45; Stop 05/13/18 at 23:44; Status DC Doxycycline Hyclate 100 mg/ Dextrose 100 ml @ 50 mls/hr Q12HR IV Last administered on 05/14/18at 09:11; Start 05/13/18 at 09:00 Furosemide (Lasix) 20 mg [id number] IVP Last administered on 05/14/18at 09:11; Start 05/13/18 at 09:00 Methylprednisolone Sodium Succinate (SOLU-Medrol 40MG VIAL) 40 mg Q8HRS IV Last administered on 05/14/18at 06:10; Start 05/13/18 at 06:00 Albuterol/ Ipratropium (Duoneb) 3 ml RTQID NEB Last administered on 05/13/18at 02 :28; Start 05/13/18 at 02:30; Stop 05/13/18 at 07:59; Status DC Lorazepam (Ativan) 1 mg PRN Q4HRS PRN IV ANXIETY / AGITATION Last administered on 05/13/18at 22:32; Start 05/13/18 at 07:30 Methylprednisolone Sodium Succinate (SOLU-Medrol 125MG VIAL) 80 mg 1X ONCE IV Last administered on 05/13/18at 08:01; Start 05/13/18 at 08:00; Stop 05/13/18 at 08: 01; Status DC Albuterol/ Ipratropium (Duoneb) 3 ml 1X ONCE NEB Last administered on at 08:17; Start 05/13/18 at 08:00; Stop 05/13/18 at 08:01; Status DC Albuterol Sulfate (Ventolin Neb Soln) 2.5 mg PRN Q4HRS PRN NEB SHORTNESS OF BREATH; Start 05/13/18 at 07:45; Stop 05/13/18 at 15:07; Status DC Albuterol/ Ipratropium (Duoneb) 3 ml Q4HRS NEB Last administered on 05/14/18at 11 :34; Start 05/13/18 at 08:00 Ceftriaxone Sodium (Rocephin) 1 gm Q24H IVP Last administered on 05/14/18at 09:12 ; Start 05/13/18 at 09:00 Albuterol Sulfate (Ventolin Neb Soln) 2.5 mg PRN Q2HR PRN NEB SHORTNESS OF BREATH; Start 05/13/18 at 08:00 Budesonide (Pulmicort) 0.5 mg RTBID NEB Last administered on 05/14/18at 07:40; Start 05/13/18 at 08:00 Amlodipine Besylate (Norvasc) 5 mg DAILY PO Last administered on 05/14/18at 09:20 ; Start 05/13/18 at 13:00 Atorvastatin Calcium (Lipitor) 10 mg HS PO Last administered on 05/13/18 21:22 ; Start 05/13/18 at 21:00 Guaifenesin (Mucinex) 600 mg TID PO Last administered on 05/14/18 09:09; Start 05/13/18 at 14:00 Ibuprofen (Motrin) 400 mg PRN Q6HRS PRN PO INFLAMMATION; Start 05/13/18 at 12:00 Losartan Potassium (Cozaar) 25 mg DAILY PO Last administered on 05/14/18 09:10 ; Start 05/13/18 at 13:00 Oxycodone HCl (Roxicodone) 5 mg PRN Q3HRS PRN PO MODERATE-SEVERE PAIN Last administered on 05/14/18 06:15; Start 05/13/18 at 12:00 Acetaminophen (Tylenol) 1,000 mg PRN Q6HRS PRN PO MILD PAIN / TEMP; Start at 12:00 Vitamin D (Vitamin D3) 2,000 unit DAILY PO Last administered on 05/14/18 09:08 ; Start 05/13/18 at 13:00 Lactobacillus Rhamnosus (Culturelle) 1 cap BID PO Last administered on 09:09; Start 05/13/18 at 13:00 Metformin HCl (Glucophage) 500 mg DAILYWBKFT PO ; Start 05/15/18 at 08:00 Nicotine (Nicoderm Cq 14mg) 1 patch DAILY TD Last administered on 05/14/18 09: 16; Start 05/13/18 at 13:00 Fish Oil (Fish Oil) 1,000 mg DAILY PO ; Start 05/13/18 at 13:00 Potassium Chloride (Klor-Con) 20 meq DAILYWBKFT PO ; Start 05/13/18 at 13:00; Status Cancel Rivaroxaban (Xarelto) 20 mg DAILYWSUP PO Last administered on 05/13/18 17:04; Start 05/13/18 at 17:00 Potassium Chloride (KCl Oral Soln) 20 meq DAILY PO Last administered on 09:06; Start 05/13/18 at 13:00 Info (Anti-Coagulation Monitoring By Pharmacy) 1 each PRN DAILY PRN MC SEE COMMENTS Last administered on 05/14/18at 11:56; Start 05/13/18 at 15:00 Benzonatate (Tessalon Perle) 100 mg [id number] PO Last administered on 05/14/18at 09: 16; Start 05/13/18 at 21:00 Pantoprazole Sodium (Protonix) 40 mg DAILYAC PO ; Start 05/14/18 at 13:00 Docusate Sodium (Colace) 100 mg DAILY PO ; Start 05/14/18 at 13:00 Active Scripts Active Reported Xarelto (Rivaroxaban) 20 Mg Tablet 20 Mg PO DAILY Vitamin D3 (Cholecalciferol (Vitamin D3)) 2,000 Unit Capsule 2,000 Unit PO DAILY Potassium Chloride Oral Liquid (Potassium Chloride) 20 Meq/15 Ml Liquid 20 Meq AC DAILY Oxycodone Hcl Immed.release (Oxycodone Hcl) 5 Mg Tablet 5 Mg PO PRN Q3HRS PRN Metformin Hcl 500 Mg Tablet 500 Mg PO DAILYWBKFT Losartan Potassium 50 Mg Tablet 25 Mg PO DAILY Lorazepam 1 Mg Tablet 1 Mg PO TID Probiotic (Lactobacillus Acidophilus) 1 Each Capsule 1 Each PO BID Ibuprofen 400 Mg Tablet 400 Mg PO PRN Q6HRS PRN Mucinex (Guaifenesin) 600 Mg Tablet.er 600 Mg PO TID Furosemide 20 Mg Tablet 20 Mg PO DAILY Budesonide 0.5 Mg/2 Ml Ampul.neb 0.5 Mg IH BID Atorvastatin Calcium 10 Mg Tablet 10 Mg PO HS Amlodipine Besylate 5 Mg Tablet 5 Mg PO DAILY Proair Hfa Inhaler (Albuterol Sulfate) 8.5 Gm Hfa.aer.ad 2 Puff INH PRN Q6HRS PRN Acetaminophen 500 Mg Tablet 1,000 Mg PO PRN Q6HRS PRN Nicotine Patch (Nicotine) 1 Each Patch.td24 1 Patch TP DAILY Albuterol Sulfate Neb Soln (Albuterol Sulfate) 2.5 Mg/3 Ml Vial.neb 1 Vial NEB PRN Q2HR PRN Fish Oil (Jewell-3 Fatty Acids) 300 Mg Capsule 300 Mg PO DAILY Vitals/I & O Vital Sign - Last 24 Hours 05/13/18 05/13/18 05/13/18 05/13/18 14:59 15:00 19:34 20:21 Temp 98.5 97.5 98.5 97.5 Pulse 116 110 Resp 20 20 B/P (MAP) 107/63 (78) 116/64 (81) Pulse Ox 96 95 98 O2 Delivery Nasal Cannula Nasal Cannula Nasal Cannula Nasal Cannula O2 Flow Rate 4.0 3.0 3.0 3.0 05/13/18 05/13/18 05/14/18 05/14/18 20:43 23:48 00:11 03:37 Temp 98.1 97.5 98.1 97.5 Pulse 111 99 Resp 20 20 B/P (MAP) 128/81 (97) 121/68 (85) Pulse Ox 96 97 96 95 O2 Delivery Nasal Cannula Nasal Cannula Nasal Cannula Nasal Cannula O2 Flow Rate 3.0 3.0 3.0 3.0 05/14/18 05/14/18 05/14/18 05/14/18 04:19 06:15 07:00 07:15 Temp 97.7 97.7 Pulse 105 Resp 20 19 B/P (MAP) 117/67 (84) Pulse Ox 96 95 98 O2 Delivery Nasal Cannula Nasal Cannula Nasal Cannula Nasal Cannula O2 Flow Rate 3.0 3.0 3.0 3.0 05/14/18 05/14/18 05/14/18 05/14/18 07:40 08:00 09:10 09:20 Pulse 105 105 B/P (MAP) 117/67 117/67 Pulse Ox 98 O2 Delivery Nasal Cannula Nasal Cannula O2 Flow Rate 3.0 3.0 05/14/18 05/14/18 11:13 11:34 Temp 97.6 97.6 Pulse 114 Resp 24 B/P (MAP) 132/71 (91) Pulse Ox 98 O2 Delivery Nasal Cannula Nasal Cannula O2 Flow Rate 3.0 3.0 Intake and Output 05/13/18 05/13/18 05/14/18 15:00 23:00 07:00 Intake Total 150 ml 300 ml 100 ml Balance 150 ml 300 ml 100 ml CASTLE,NIAL K III DO May 14, 2018 13:25
--- NOTE | 2018-05-14 14:44 | PDOC2 ---
GI CONSULT Reason For Consult: Dysphagia HPI: HPI: Annemarie Sewell is a 89 years old female patient with past medical history of hypertension, hyperlipidemia, diabetes mellitus and lung cancer diagnosed in 2014. She has been followed by at and had chemoradiation. 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 She reports she is off chemotherapy at this time. She is scheduled to see on Tuesday (05/16) and palliative and hospice care on Tuesday (05/17). GI consulted nor for dysphagia. Patient indicates that the dysphagia has started 3-4 weeks ago. The dysphagia is intermittent and is mainly evident when she swallows pills and solid foods. She has decreased appetite and has lost about 10 pounds in the last 1-2 months. She has change in bowel habits with both diarrhea and constipation. No melena or hematochezia. PMH: PMH: Hypertension. Hyperlipidemia. Diabetes Mellitus. Lung cancer s/p chemoradiation with recurrence. 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 ROS: GEN: Denies fevers, chills, sweats HEENT: Denies blurred vision, sore throat CV: Denies chest pain RESP: Denies shortness of air, cough GI: Per HPI : Denies hematuria, dysuria ENDO: Denies weight changes NEURO: Denies confusion, dizziness MSK: Denies weakness, joint pain/swelling SKIN: Denies jaundice, pruritus Vitals: Vitals: Vital Signs Date Time Temp Pulse Resp B/P (MAP) Pulse Ox O2 Delivery O2 Flow Rate FiO2 05/14/18 11:34 Nasal Cannula 3.0 05/14/18 11:13 97.6 114 24 132/71 (91) 98 97.6 Labs: Labs: Laboratory Tests Test 05/14/18 04:13 White Blood Count 6.2 x10^3/uL (4.0-11.0) Red Blood Count 4.11 x10^6/uL (3.50-5.40) Hemoglobin 11.4 g/dL (12.0-15.5) Hematocrit 34.9 % (36.0-47.0) Mean Corpuscular Volume 85 fL (79-100) Mean Corpuscular Hemoglobin 28 pg (25-35) Mean Corpuscular Hemoglobin Concent 33 g/dL (31-37) Red Cell Distribution Width 15.6 % (11.5-14.5) Platelet Count 191 x10^3/uL (140-400) Neutrophils (%) (Auto) 90 % (31-73) Lymphocytes (%) (Auto) 7 % (24-48) Monocytes (%) (Auto) 2 % (0-9) Eosinophils (%) (Auto) 0 % (0-3) Basophils (%) (Auto) 0 % (0-3) Neutrophils # (Auto) 5.6 x10^3uL (1.8-7.7) Lymphocytes # (Auto) 0.4 x10^3/uL (1.0-4.8) Monocytes # (Auto) 0.2 x10^3/uL (0.0-1.1) Eosinophils # (Auto) 0.0 x10^3/uL (0.0-0.7) Basophils # (Auto) 0.0 x10^3/uL (0.0-0.2) Segmented Neutrophils % 89 % (35-66) Band Neutrophils % 3 % (0-9) Lymphocytes % 6 % (24-48) Monocytes % 2 % (0-10) Platelet Estimate Adequate (ADEQUATE) Large Platelets Present Anisocytosis Slight Sodium Level 140 mmol/L (136-145) Potassium Level 3.8 mmol/L (3.5-5.1) Chloride Level 101 mmol/L (98-107) Carbon Dioxide Level 28 mmol/L (21-32) Anion Gap 11 (6-14) Blood Urea Nitrogen 14 mg/dL (7-20) Creatinine 0.7 mg/dL (0.6-1.0) Estimated GFR (Cockcroft-Gault) 84.2 Glucose Level 125 mg/dL (70-99) Calcium Level 9.9 mg/dL (8.5-10.1) Allergies: Coded Allergies: Sulfa (Sulfonamide Antibiotics) (Verified Adverse Reaction, Severe, 03/11/14 ) Medications: Current Medications Medications (Trade) Dose Ordered Sig/Jyoti Route PRN Reason Start Time Stop Time Status Last Admin Dose Admin Atorvastatin Calcium (Lipitor) 10 mg HS PO 05/13/18 21:00 05/13/18 21:22 Rivaroxaban (Xarelto) 20 mg DAILYWSUP PO 05/13/18 17:00 05/13/18 17:04 Info (Anti-Coagulation Monitoring By Pharmacy) 1 each PRN DAILY PRN MC SEE COMMENTS 05/13/18 15:00 05/14/18 11:56 Benzonatate (Tessalon Perle) 100 mg [id number] PO 05/13/18 21:00 05/14/18 09:16 Imaging: Imaging: [facility] [address] [place] [address] IMAGING REPORT Signed PATIENT: ANNEMARIE SEWELL ACCOUNT: [id number] : 1955 LOCATION: ER AGE: 62 SEX: F EXAM STATUS: PRE ER ORD. PHYSICIAN: ABNER AREVALO DO REASON: SOA PROCEDURE: CHEST AP ONLY Indication:SOA, CHEST PAIN TECHNIQUE:Portable AP chest X-ray COMPARISON:CT chest from 03/08/2014 FINDINGS: Right chest wall Chemo-Port is seen with its tip in the SVC. Heart is normal in size. Large right suprahilar mass is again seen. Lungs are hyperinflated. Diffuse interstitial opacities are seen in the right lung. No pneumothorax or large. Effusion. Visualized bony thorax within normal limits. IMPRESSION: 1. Redemonstration of right suprahilar mass. 2. Trace right pleural effusion. 3. Interstitial opacities in the right lung may be secondary to lymphangitic spread of malignancy, edema or infection. Electronically signed by: Raymundo Brown DO (05/12/2018 8:59 PM) [facility] DICTATED and SIGNED BY: RAYMUNDO BROWN DO DATE: 05/12/182058 PE: GEN: NAD HEENT: Atraumatic, PERRLA LUNGS: CTAB HEART: RRR, no murmurs ABD: NABS, S/ND/NT, no masses EXTREMITY: No edema SKIN: No rashes, no jaundice NEURO/PSYCH: A & O 3 A/P: A/P: Annemarie Sewell is a 89 years old female patient with past medical history of lung cancer diagnosed in 2015 s/p chemoradiation. She follows with at . her clinical course has been complicated by recurrence and thrombosis of SVC. GI consulted for intermittent dysphagia to pills and solid foods. The dysphagia may be due to radiation induced esophagitis with stricture versus mass effect. Patient has not had upper endoscopic exam. Labs notable for normocytic anemia. Imaging of the chest notable for right suprahilar mass and race right pleural effusion. 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 Recommendations: - I have detailed discussion with patient and whole family who were in the room with patient. - They would like to meet with and [facility] on 05/16 and 05/17, respectively before making decision for EGD. - Patient and family to call to our office to let us know the decision regarding goal of care. - We will arrange for out patient EGD pending the final decision from [facility]. - Discussed with patient and family the need to hold Xarelto for couple of days before the procedure ( if decided). - GI available for any Q's. Thank you for involving us in the care of this interesting patient. ALEXY MERIDA MD May 14, 2018 14:44
[2018-05-14 15:05] VITALS: BP 124/99
[2018-05-14] MEDS: DOCUSATE SODIUM 100 MG CAPSULE. PO SCH (15:09)
[2018-05-14] MEDS: PANTOPRAZOLE 40 MG TABLET.DR. PO SCH (15:10)
[2018-05-14] MEDS ORDERED: POLYETHYLENE GLYCOL 3350 17 GM PACKET. PO PRN (17:00)
[2018-05-14] MEDS: RIVAROXABAN 10 MG TABLET. PO SCH (17:36)
--- NOTE | 2018-05-14 17:51 | NUR ---
Gi physician came this afternoon to evaluate patient. Patient and family expressed that they will cancel further work-up (UGI endoscopy) stating that the patient might not be able to tolerate procedure.
[2018-05-14 19:00] VITALS: BP 114/57
[2018-05-14] MEDS: ATORVASTATIN CALCIUM 10 MG TABLET. PO SCH (20:51)
[2018-05-14 23:00] VITALS: BP 104/53
[2018-05-15] MEDS: IPRATRPIUM/ALBUTEROL 0.5/2.5MG 3 ML NEBU. NEB SCH ×4 (00:18→11:08)
[2018-05-15] MEDS: methylPREDNISolone SOD SUCC PF 40 MG/ML VIAL. IV SCH (06:20)
[2018-05-15] MEDS: oxyCODONE IR 5 MG TABLET PO PRN (06:36)
[2018-05-15 06:38] LABS: BASO % 0 % (0-3); EOS % 0 % (0-3); HEMOGLOBIN 11.7 g/dL (12.0-15.5); LYMPH # 0.4 x10^3/uL (1.0-4.8); LYMPH % 4 % (24-48); MEAN CORPUSCULAR HEMOGLOBIN 28 pg (25-35); MEAN CORPUSCULAR HGB CONC 34 g/dL (31-37); MEAN CORPUSCULAR VOLUME 85 fL (79-100); MONO # 0.3 x10^3/uL (0.0-1.1); MONO % 3 % (0-9); NEUT # 9.8 x10^3uL (1.8-7.7); NEUT % 93 % (31-73); PLATELET COUNT 210 x10^3/uL (140-400); RED BLOOD COUNT 4.14 x10^6/uL (3.50-5.40); RED CELL DISTRIBUTION WIDTH 15.8 % (11.5-14.5); WHITE BLOOD COUNT 10.6 x10^3/uL (4.0-11.0)
[2018-05-15 07:00] VITALS: BP 119/64
[2018-05-15 07:00] LABS: CALCIUM 10.1 mg/dL (8.5-10.1); CREATININE 0.8 mg/dL (0.6-1.0); GFR 72.2; POTASSIUM 3.9 mmol/L (3.5-5.1)
[2018-05-15] MEDS: BUDESONIDE 0.5 MG/2 ML NEBU. NEB SCH (08:00)
[2018-05-15] MEDS ORDERED: metFORMIN 500 MG TABLET PO SCH (08:00)
[2018-05-15] MEDS: OMEGA-3 FATTY ACIDS/FISH OIL 1,000 MG CAPSULE. PO SCH (09:00)
[2018-05-15] MEDS: DOXYCYCLINE HYCLATE 100 MG in IV DEXTROSE 5% 100ML 100 ML IV SCH (09:03)
[2018-05-15] MEDS: cefTRIAXone IV Push 1 GM VIAL. IVP SCH (09:03)
[2018-05-15] MEDS: CHOLECALCIFEROL (VITAMIN D3) 1,000 UNIT TABLET PO SCH (09:04)
[2018-05-15] MEDS: POTASSIUM CHLORIDE 20 MEQ/15 ML ORAL LIQUID. PO SCH (09:04)
[2018-05-15] MEDS: PANTOPRAZOLE 40 MG TABLET.DR. PO SCH (09:05)
[2018-05-15] MEDS: LACTOBACILLUS RHAMNOSUS GG 1 CAPSULE. PO SCH (09:05)
[2018-05-15] MEDS: DOCUSATE SODIUM 100 MG CAPSULE. PO SCH (09:05)
[2018-05-15] MEDS: LOSARTAN POTASSIUM 25 MG TABLET. PO SCH (09:05)
[2018-05-15] MEDS: BENZONATATE 100 MG CAPSULE. PO SCH (09:05)
[2018-05-15] MEDS: FUROSEMIDE 20 MG/2 ML VIAL. IVP SCH (09:06)
[2018-05-15] MEDS: amLODIPine BESYLATE 5 MG TABLET PO SCH (09:06)
[2018-05-15] MEDS: NICOTINE 14MG PATCH. TD SCH (09:07)
--- NOTE | 2018-05-15 09:48 | PDOC ---
Subjective: Subjective: Tolerated soup for breakfast. Objective: Objective: Per RN - home w/ hospice today. Vital Signs: Vital Signs Date Time Temp Pulse Resp B/P (MAP) Pulse Ox O2 Delivery O2 Flow Rate FiO2 05/15/18 09:06 107 119/64 05/15/18 07:00 97.5 16 96 Nasal Cannula 3.0 97.5 Labs: Laboratory Tests Test 05/15/18 06:30 White Blood Count 10.6 x10^3/uL Red Blood Count 4.14 x10^6/uL Hemoglobin 11.7 g/dL Hematocrit 35.0 % Mean Corpuscular Volume 85 fL Mean Corpuscular Hemoglobin 28 pg Mean Corpuscular Hemoglobin Concent 34 g/dL Red Cell Distribution Width 15.8 % Platelet Count 210 x10^3/uL Neutrophils (%) (Auto) 93 % Lymphocytes (%) (Auto) 4 % Monocytes (%) (Auto) 3 % Eosinophils (%) (Auto) 0 % Basophils (%) (Auto) 0 % Neutrophils # (Auto) 9.8 x10^3uL Lymphocytes # (Auto) 0.4 x10^3/uL Monocytes # (Auto) 0.3 x10^3/uL Eosinophils # (Auto) 0.0 x10^3/uL Basophils # (Auto) 0.0 x10^3/uL Sodium Level 139 mmol/L Potassium Level 3.9 mmol/L Chloride Level 100 mmol/L Carbon Dioxide Level 30 mmol/L Anion Gap 9 Blood Urea Nitrogen 21 mg/dL Creatinine 0.8 mg/dL Estimated GFR (Cockcroft-Gault) 72.2 Glucose Level 110 mg/dL Calcium Level 10.1 mg/dL BLOOD CULTURE Preliminary NO GROWTH AFTER 2 DAYS PE: GEN: NAD, up to chair LUNGS: NC NEURO/PSYCH: A & O 3 A/P: Stage IV lung cancer s/o chemo/rad, COPD Intermittent dysphagia -- Disposition plans as above. CHUN TRAYLOR May 15, 2018 09:48
--- NOTE | 2018-05-15 10:25 | SNU/HH DC ---
DISCHARGE ORDERS DISCHARGE INFORMATION: CONDITION ON DISCHARGE: Stable CODE STATUS: Code Status: DNR/DNI ASSISTED: SNF STAY <30 DAYS: No HOSPICE: HOSPICE: Yes HOSPICE EVAL & TREAT: Yes LTAC: ADMIT TO LTAC: No POST DISCHARGE ORDERS: ACTIVITY ORDERS: Bedrest today DIET AFTER DISCHARGE: Cardiac DISCHARGE MEDICATIONS: Home Meds Reported Medications Rivaroxaban (XARELTO) 20 Mg Tablet, 20 MG PO DAILY for vte prophylaxis, TAB 05/13/18 Cholecalciferol (Vitamin D3) (VITAMIN D3) 2,000 Unit Capsule, 2000 UNIT PO DAILY for supplement, CAP 05/13/18 Potassium Chloride (POTASSIUM CHLORIDE ORAL LIQUID) 20 Meq/15 Ml Liquid, 20 MEQ AC DAILY for supplement, LIQUID 05/13/18 Oxycodone Hcl (OXYCODONE HCL IMMED.RELEASE ) 5 Mg Tablet, 5 MG PO PRN Q3HRS PRN for PAIN, TAB 0 Refills 05/13/18 Metformin Hcl (METFORMIN HCL) 500 Mg Tablet, 500 MG PO DAILYWBKFT for ANTI- DIABETIC, TAB 0 Refills 05/13/18 Losartan Potassium (LOSARTAN POTASSIUM) 50 Mg Tablet, 25 MG PO DAILY for HYPERTENSION, TAB 05/13/18 Lorazepam (LORAZEPAM) 1 Mg Tablet, 1 MG PO TID for anxiety, TAB 05/13/18 Lactobacillus Acidophilus (PROBIOTIC) 1 Each Capsule, 1 EACH PO BID for probiotic, CAP 05/13/18 Ibuprofen (IBUPROFEN) 400 Mg Tablet, 400 MG PO PRN Q6HRS PRN for INFLAMMATION, TAB 05/13/18 Guaifenesin (MUCINEX) 600 Mg Tablet.er, 600 MG PO TID for copd, TAB.SR 05/13/18 Furosemide (FUROSEMIDE) 20 Mg Tablet, 20 MG PO DAILY for lower extremity swelling, TAB 05/13/18 Budesonide (BUDESONIDE) 0.5 Mg/2 Ml Ampul.neb, 0.5 MG IH BID for copd, EACH 05/13/18 Atorvastatin Calcium (ATORVASTATIN CALCIUM) 10 Mg Tablet, 10 MG PO HS for FOR CHOLESTEROL, #30 TAB 0 Refills 05/13/18 Amlodipine Besylate (AMLODIPINE BESYLATE) 5 Mg Tablet, 5 MG PO DAILY for hypertension, TAB 05/13/18 Albuterol Sulfate (PROAIR HFA INHALER) 8.5 Gm Hfa.aer.ad, 2 PUFF INH PRN Q6HRS PRN for SHORTNESS OF BREATH, INHALER 0 Refills 05/13/18 Acetaminophen (ACETAMINOPHEN) 500 Mg Tablet, 1000 MG PO PRN Q6HRS PRN for MILD PAIN / TEMP, TAB 05/13/18 Nicotine (NICOTINE PATCH) 1 Each Patch.td24, 1 PATCH TP DAILY, #28 PATCH 03/11/14 Albuterol Sulfate (ALBUTEROL SULFATE NEB SOLN) 2.5 Mg/3 Ml Vial.neb, 1 VIAL NEB PRN Q2HR PRN for SHORTNESS OF BREATH, #50 VIAL 03/11/14 [place]-3 Fatty Acids (FISH OIL) 300 Mg Capsule, 300 MG PO DAILY 03/08/14 CYNDI CHILDERS III DO May 15, 2018 10:25
--- NOTE | 2018-05-15 10:38 | PDOC2 ---
PALLIATIVE CARE Palliative Care Note Palliative Care Consult requested by Dr. Lamar to assist with plan of care. Patient alert. Sitting up in chair. Diagnosis per medical record; End Stage Lung Cancer, COPD, intermittent dysphagia Patient has appt. with oncologist tomorrow. She will to see if she should keep this apptl Patient has met with [facility]. Outside the Hospital DNR/DNI form signed, Prescriptions on chart. Patient complains of SOB. Senia DIOP will call for medication. OxyContin give for pain. Denies pain at this time. DME ordered by [facility]. Blade LOWE assisting with discharge plan. [facility] transportation will assist in transfer home. CANDY LAIRD May 15, 2018 10:38
[2018-05-15 10:49] VITALS: BP 114/47
--- NOTE | 2018-05-15 11:08 | NUR ---
SW following pt for dc need. Pt will go home today with [facility]. SW confirmed with Laverne at [facility] they have received clinicals/orders already and have everything they need. Spoke with pt and family in room and they have 02 tank to take her home with. Family reported they have discussed with [facility] about equipment they need and it being ordered this morning. Discussed with RN.
--- NOTE | 2018-05-15 11:09 | PDOC ---
PROGRESS NOTES Chief Complaint Chief Complaint COPD exacerbation History of Present Illness History of Present Illness Patient sitting in bedside chair, with daughter in the room. She would like to discharge today so that she can keep her [facility] onc[facility] appointment tomorrow. They met with [facility] yesterday and have arrangements for them to come to her home later today. Vitals Vitals Vital Signs Date Time Temp Pulse Resp B/P (MAP) Pulse Ox O2 Delivery O2 Flow Rate FiO2 05/15/18 10:49 97.8 104 16 114/47 (69) 96 Nasal Cannula 3.0 97.8 Physical Exam General: Alert, Oriented X3, Cooperative, No acute distress Heart: Regular rate, Normal S1, Normal S2, No murmurs Lungs: Other (decrease bs right) Abdomen: Normal bowel sounds, Soft, No tenderness Extremities: No edema, Normal pulses, No tenderness/swelling Skin: No rashes, No breakdown, No significant lesion Labs LABS Laboratory Tests Test 05/15/18 06:30 White Blood Count 10.6 x10^3/uL (4.0-11.0) Red Blood Count 4.14 x10^6/uL (3.50-5.40) Hemoglobin 11.7 g/dL (12.0-15.5) Hematocrit 35.0 % (36.0-47.0) Mean Corpuscular Volume 85 fL (79-100) Mean Corpuscular Hemoglobin 28 pg (25-35) Mean Corpuscular Hemoglobin Concent 34 g/dL (31-37) Red Cell Distribution Width 15.8 % (11.5-14.5) Platelet Count 210 x10^3/uL (140-400) Neutrophils (%) (Auto) 93 % (31-73) Lymphocytes (%) (Auto) 4 % (24-48) Monocytes (%) (Auto) 3 % (0-9) Eosinophils (%) (Auto) 0 % (0-3) Basophils (%) (Auto) 0 % (0-3) Neutrophils # (Auto) 9.8 x10^3uL (1.8-7.7) Lymphocytes # (Auto) 0.4 x10^3/uL (1.0-4.8) Monocytes # (Auto) 0.3 x10^3/uL (0.0-1.1) Eosinophils # (Auto) 0.0 x10^3/uL (0.0-0.7) Basophils # (Auto) 0.0 x10^3/uL (0.0-0.2) Sodium Level 139 mmol/L (136-145) Potassium Level 3.9 mmol/L (3.5-5.1) Chloride Level 100 mmol/L (98-107) Carbon Dioxide Level 30 mmol/L (21-32) Anion Gap 9 (6-14) Blood Urea Nitrogen 21 mg/dL (7-20) Creatinine 0.8 mg/dL (0.6-1.0) Estimated GFR (Cockcroft-Gault) 72.2 Glucose Level 110 mg/dL (70-99) Calcium Level 10.1 mg/dL (8.5-10.1) Review of Systems Review of Systems cough, SOB, anxiety, pain Assessment and Plan Assessmemt and Plan Assessment: Acute on chronic respiratory failure Acute COPD exacerbation Lung cancer - right suprahilar mass with suspected lymphangitic spread Dyspepsia Dysphagia Constipation Hypertension, history of Diabetes mellitus, history of Tobaccoism Plan: Resume home medications Outside of Hospital DNR/DNI form signed Prescriptions written and on chart: Doxycycline 100 mg BID #14 Oxycodone IR 5 mg q3hr #30 Ativan 1 mg q8hr #30 Home O2 Inpatient Antibiotics: Levofloxacin 750 mg IV x1 - 05/12/18 Doxycycline 100 mg IV BID - started 05/13/18 Rocephin 1 gm IV daily - started 05/13/18 Micro: Blood culture (05/12/18) - no growth to date Discharge home with hospice today, has appointment with [facility] tomorrow. Comment Review of Relevant I have reviewed the following items rita (where applicable) has been applied. Labs Laboratory Tests Test 05/14/18 04:13 05/15/18 06:30 White Blood Count 6.2 x10^3/uL (4.0-11.0) 10.6 x10^3/uL (4.0-11.0) Red Blood Count 4.11 x10^6/uL (3.50-5.40) 4.14 x10^6/uL (3.50-5.40) Hemoglobin 11.4 g/dL (12.0-15.5) 11.7 g/dL (12.0-15.5) Hematocrit 34.9 % (36.0-47.0) 35.0 % (36.0-47.0) Mean Corpuscular Volume 85 fL (79-100) 85 fL (79-100) Mean Corpuscular Hemoglobin 28 pg (25-35) 28 pg (25-35) Mean Corpuscular Hemoglobin Concent 33 g/dL (31-37) 34 g/dL (31-37) Red Cell Distribution Width 15.6 % (11.5-14.5) 15.8 % (11.5-14.5) Platelet Count 191 x10^3/uL (140-400) 210 x10^3/uL (140-400) Neutrophils (%) (Auto) 90 % (31-73) 93 % (31-73) Lymphocytes (%) (Auto) 7 % (24-48) 4 % (24-48) Monocytes (%) (Auto) 2 % (0-9) 3 % (0-9) Eosinophils (%) (Auto) 0 % (0-3) 0 % (0-3) Basophils (%) (Auto) 0 % (0-3) 0 % (0-3) Neutrophils # (Auto) 5.6 x10^3uL (1.8-7.7) 9.8 x10^3uL (1.8-7.7) Lymphocytes # (Auto) 0.4 x10^3/uL (1.0-4.8) 0.4 x10^3/uL (1.0-4.8) Monocytes # (Auto) 0.2 x10^3/uL (0.0-1.1) 0.3 x10^3/uL (0.0-1.1) Eosinophils # (Auto) 0.0 x10^3/uL (0.0-0.7) 0.0 x10^3/uL (0.0-0.7) Basophils # (Auto) 0.0 x10^3/uL (0.0-0.2) 0.0 x10^3/uL (0.0-0.2) Segmented Neutrophils % 89 % (35-66) Band Neutrophils % 3 % (0-9) Lymphocytes % 6 % (24-48) Monocytes % 2 % (0-10) Platelet Estimate Adequate (ADEQUATE) Large Platelets Present Anisocytosis Slight Sodium Level 140 mmol/L (136-145) 139 mmol/L (136-145) Potassium Level 3.8 mmol/L (3.5-5.1) 3.9 mmol/L (3.5-5.1) Chloride Level 101 mmol/L (98-107) 100 mmol/L (98-107) Carbon Dioxide Level 28 mmol/L (21-32) 30 mmol/L (21-32) Anion Gap 11 (6-14) 9 (6-14) Blood Urea Nitrogen 14 mg/dL (7-20) 21 mg/dL (7-20) Creatinine 0.7 mg/dL (0.6-1.0) 0.8 mg/dL (0.6-1.0) Estimated GFR (Cockcroft-Gault) 84.2 72.2 Glucose Level 125 mg/dL (70-99) 110 mg/dL (70-99) Calcium Level 9.9 mg/dL (8.5-10.1) 10.1 mg/dL (8.5-10.1) Laboratory Tests Test 05/15/18 06:30 White Blood Count 10.6 x10^3/uL (4.0-11.0) Red Blood Count 4.14 x10^6/uL (3.50-5.40) Hemoglobin 11.7 g/dL (12.0-15.5) Hematocrit 35.0 % (36.0-47.0) Mean Corpuscular Volume 85 fL (79-100) Mean Corpuscular Hemoglobin 28 pg (25-35) Mean Corpuscular Hemoglobin Concent 34 g/dL (31-37) Red Cell Distribution Width 15.8 % (11.5-14.5) Platelet Count 210 x10^3/uL (140-400) Neutrophils (%) (Auto) 93 % (31-73) Lymphocytes (%) (Auto) 4 % (24-48) Monocytes (%) (Auto) 3 % (0-9) Eosinophils (%) (Auto) 0 % (0-3) Basophils (%) (Auto) 0 % (0-3) Neutrophils # (Auto) 9.8 x10^3uL (1.8-7.7) Lymphocytes # (Auto) 0.4 x10^3/uL (1.0-4.8) Monocytes # (Auto) 0.3 x10^3/uL (0.0-1.1) Eosinophils # (Auto) 0.0 x10^3/uL (0.0-0.7) Basophils # (Auto) 0.0 x10^3/uL (0.0-0.2) Sodium Level 139 mmol/L (136-145) Potassium Level 3.9 mmol/L (3.5-5.1) Chloride Level 100 mmol/L (98-107) Carbon Dioxide Level 30 mmol/L (21-32) Anion Gap 9 (6-14) Blood Urea Nitrogen 21 mg/dL (7-20) Creatinine 0.8 mg/dL (0.6-1.0) Estimated GFR (Cockcroft-Gault) 72.2 Glucose Level 110 mg/dL (70-99) Calcium Level 10.1 mg/dL (8.5-10.1) Microbiology 05/12/18 Blood Culture - Preliminary, Resulted NO GROWTH AFTER 2 DAYS Medications Current Medications Albuterol Sulfate (Ventolin Neb Soln) 10 mg 1X ONCE CONT NEB Last administered on 05/12/18at 21:03; Start 05/12/18 at 21:00; Stop 05/12/18 at 21:01; Status DC Lorazepam (Ativan) 1 mg 1X ONCE PO Last administered on 05/12/18at 21:46; Start 05/12/18 at 21:45; Stop 05/12/18 at 21:46; Status DC Iohexol (Omnipaque 350 Mg/ml) 100 ml 1X ONCE IV ; Start 05/12/18 at 22:45; Stop 05/12/18 at 22:46; Status DC Info (CONTRAST GIVEN -- Rx MONITORING) 1 each PRN DAILY PRN MC SEE COMMENTS; Start 05/12/18 at 22:45; Stop 05/14/18 at 22:44; Status DC Levofloxacin/ Dextrose 150 ml @ 100 mls/hr 1X ONCE IV ; Start 05/12/18 at 23:45 ; Stop 05/12/18 at 23:45; Status DC Doxycycline Hyclate 100 mg/ Dextrose 100 ml @ 50 mls/hr 1X ONCE IV Last administered on 05/13/18at 00:56; Start 05/12/18 at 23:45; Stop 05/13/18 at 01:44; Status DC Ondansetron HCl (Zofran) 4 mg PRN Q8HRS PRN IV NAUSEA/VOMITING; Start 05/12/18 at 23:45; Stop 05/13/18 at 23:44; Status DC Sodium Chloride 1,000 ml @ 75 mls/hr [id number] IV Last administered on 05/13/18at 12:38; Start 05/12/18 at 23:45; Stop 05/13/18 at 23:44; Status DC Doxycycline Hyclate 100 mg/ Dextrose 100 ml @ 50 mls/hr Q12HR IV Last administered on 05/15/18 09:03; Start 05/13/18 at 09:00 Furosemide (Lasix) 20 mg [id number] IVP Last administered on 05/15/18 09:06; Start 05/13/18 at 09:00 Methylprednisolone Sodium Succinate (SOLU-Medrol 40MG VIAL) 40 mg Q8HRS IV Last administered on 05/15/18 06:20; Start 05/13/18 at 06:00 Albuterol/ Ipratropium (Duoneb) 3 ml RTQID NEB Last administered on 05/13/18at 02 :28; Start 05/13/18 at 02:30; Stop 05/13/18 at 07:59; Status DC Lorazepam (Ativan) 1 mg PRN Q4HRS PRN IV ANXIETY / AGITATION Last administered on 05/14/18at 22:11; Start 05/13/18 at 07:30 Methylprednisolone Sodium Succinate (SOLU-Medrol 125MG VIAL) 80 mg 1X ONCE IV Last administered on 05/13/18at 08:01; Start 05/13/18 at 08:00; Stop 05/13/18 at 08: 01; Status DC Albuterol/ Ipratropium (Duoneb) 3 ml 1X ONCE NEB Last administered on at 08:17; Start 05/13/18 at 08:00; Stop 05/13/18 at 08:01; Status DC Albuterol Sulfate (Ventolin Neb Soln) 2.5 mg PRN Q4HRS PRN NEB SHORTNESS OF BREATH; Start 05/13/18 at 07:45; Stop 05/13/18 at 15:07; Status DC Albuterol/ Ipratropium (Duoneb) 3 ml Q4HRS NEB Last administered on 05/15/18 06 :57; Start 05/13/18 at 08:00 Ceftriaxone Sodium (Rocephin) 1 gm Q24H IVP Last administered on 05/15/18 09:03 ; Start 05/13/18 at 09:00 Albuterol Sulfate (Ventolin Neb Soln) 2.5 mg PRN Q2HR PRN NEB SHORTNESS OF BREATH; Start 05/13/18 at 08:00 Budesonide (Pulmicort) 0.5 mg RTBID NEB Last administered on 05/15/18 08:00; Start 05/13/18 at 08:00 Amlodipine Besylate (Norvasc) 5 mg DAILY PO Last administered on 05/15/18 09:06 ; Start 05/13/18 at 13:00 Atorvastatin Calcium (Lipitor) 10 mg HS PO Last administered on 05/14/18 20:51 ; Start 05/13/18 at 21:00 Guaifenesin (Mucinex) 600 mg TID PO Last administered on 05/15/18 09:04; Start 05/13/18 at 14:00 Ibuprofen (Motrin) 400 mg PRN Q6HRS PRN PO INFLAMMATION; Start 05/13/18 at 12:00 Losartan Potassium (Cozaar) 25 mg DAILY PO Last administered on 05/15/18 09:05 ; Start 05/13/18 at 13:00 Oxycodone HCl (Roxicodone) 5 mg PRN Q3HRS PRN PO MODERATE-SEVERE PAIN Last administered on 05/15/18 06:36; Start 05/13/18 at 12:00 Acetaminophen (Tylenol) 1,000 mg PRN Q6HRS PRN PO MILD PAIN / TEMP; Start at 12:00 Vitamin D (Vitamin D3) 2,000 unit DAILY PO Last administered on 05/15/18 09:04 ; Start 05/13/18 at 13:00 Lactobacillus Rhamnosus (Culturelle) 1 cap BID PO Last administered on 09:05; Start 05/13/18 at 13:00 Metformin HCl (Glucophage) 500 mg DAILYWBKFT PO Last administered on 05/15/18 09:04; Start 05/15/18 at 08:00 Nicotine (Nicoderm Cq 14mg) 1 patch DAILY TD Last administered on 05/15/18 09: 07; Start 05/13/18 at 13:00 Fish Oil (Fish Oil) 1,000 mg DAILY PO ; Start 05/13/18 at 13:00 Potassium Chloride (Klor-Con) 20 meq DAILYWBKFT PO ; Start 05/13/18 at 13:00; Status Cancel Rivaroxaban (Xarelto) 20 mg DAILYWSUP PO Last administered on 05/14/18 17:36; Start 05/13/18 at 17:00 Potassium Chloride (KCl Oral Soln) 20 meq DAILY PO Last administered on 09:04; Start 05/13/18 at 13:00 Info (Anti-Coagulation Monitoring By Pharmacy) 1 each PRN DAILY PRN MC SEE COMMENTS Last administered on 05/14/18 11:56; Start 05/13/18 at 15:00 Benzonatate (Tessalon Perle) 100 mg [id number] PO Last administered on 05/15/18 09: 05; Start 05/13/18 at 21:00 Pantoprazole Sodium (Protonix) 40 mg DAILYAC PO Last administered on 05/15/18 09:05; Start 05/14/18 at 13:00 Docusate Sodium (Colace) 100 mg DAILY PO Last administered on 05/15/18 09:05; Start 05/14/18 at 13:00 Polyethylene Glycol (miraLAX PACKET) 17 gm PRN DAILY PRN PO CONSTIPATION; Start 05/14/18 at 17:00 Active Scripts Active Reported Xarelto (Rivaroxaban) 20 Mg Tablet 20 Mg PO DAILY Vitamin D3 (Cholecalciferol (Vitamin D3)) 2,000 Unit Capsule 2,000 Unit PO DAILY Potassium Chloride Oral Liquid (Potassium Chloride) 20 Meq/15 Ml Liquid 20 Meq AC DAILY Oxycodone Hcl Immed.release (Oxycodone Hcl) 5 Mg Tablet 5 Mg PO PRN Q3HRS PRN Metformin Hcl 500 Mg Tablet 500 Mg PO DAILYWBKFT Losartan Potassium 50 Mg Tablet 25 Mg PO DAILY Lorazepam 1 Mg Tablet 1 Mg PO TID Probiotic (Lactobacillus Acidophilus) 1 Each Capsule 1 Each PO BID Ibuprofen 400 Mg Tablet 400 Mg PO PRN Q6HRS PRN Mucinex (Guaifenesin) 600 Mg Tablet.er 600 Mg PO TID Furosemide 20 Mg Tablet 20 Mg PO DAILY Budesonide 0.5 Mg/2 Ml Ampul.neb 0.5 Mg IH BID Atorvastatin Calcium 10 Mg Tablet 10 Mg PO HS Amlodipine Besylate 5 Mg Tablet 5 Mg PO DAILY Proair Hfa Inhaler (Albuterol Sulfate) 8.5 Gm Hfa.aer.ad 2 Puff INH PRN Q6HRS PRN Acetaminophen 500 Mg Tablet 1,000 Mg PO PRN Q6HRS PRN Nicotine Patch (Nicotine) 1 Each Patch.td24 1 Patch TP DAILY Albuterol Sulfate Neb Soln (Albuterol Sulfate) 2.5 Mg/3 Ml Vial.neb 1 Vial NEB PRN Q2HR PRN Fish Oil ([place]-3 Fatty Acids) 300 Mg Capsule 300 Mg PO DAILY Vitals/I & O Vital Sign - Last 24 Hours 05/14/18 05/14/18 05/14/18 05/14/18 11:13 11:34 15:05 15:29 Temp 97.6 98.0 97.6 98.0 Pulse 114 111 Resp 24 20 B/P (MAP) 132/71 (91) 124/99 (107) Pulse Ox 98 99 O2 Delivery Nasal Cannula Nasal Cannula Nasal Cannula Nasal Cannula O2 Flow Rate 3.0 3.0 3.0 3.0 05/14/18 05/14/18 05/14/18 05/14/18 19:00 20:04 20:40 20:40 Temp 97.5 97.5 Pulse 107 Resp 18 B/P (MAP) 114/57 (76) Pulse Ox 94 O2 Delivery Nasal Cannula Nasal Cannula Nasal Cannula Nasal Cannula O2 Flow Rate 3.0 3.0 3.0 3.0 05/14/18 05/15/18 05/15/18 05/15/18 23:00 00:19 03:37 06:36 Temp 98.3 98.3 Pulse 98 Resp 18 B/P (MAP) 104/53 (70) Pulse Ox 98 98 97 O2 Delivery Nasal Cannula Nasal Cannula Nasal Cannula Nasal Cannula O2 Flow Rate 3.0 3.0 3.0 3.0 05/15/18 05/15/18 05/15/18 05/15/18 06:57 07:00 09:05 09:06 Temp 97.5 97.5 Pulse 107 107 107 Resp 16 B/P (MAP) 119/64 (82) 119/64 119/64 Pulse Ox 96 96 O2 Delivery Nasal Cannula Nasal Cannula O2 Flow Rate 3.0 3.0 05/15/18 10:49 Temp 97.8 97.8 Pulse 104 Resp 16 B/P (MAP) 114/47 (69) Pulse Ox 96 O2 Delivery Nasal Cannula O2 Flow Rate 3.0 Intake and Output 05/14/18 05/14/18 05/15/18 14:59 22:59 06:59 Intake Total 200 ml 400 ml 100 ml Balance 200 ml 400 ml 100 ml CASTDONOVANNIAL K III DO May 15, 2018 11:09
[2018-05-15] MEDS ORDERED: HEPARIN PF 500 UNIT/5 ML DISP.SYRIN. IV ONE (11:15)
[2018-05-15] MEDS ORDERED: MORPHINE SULFATE 2 MG/ML VIAL. IV PRN (11:15)
--- NOTE | 2018-05-15 13:08 | NUR ---
Discharge Note: ISRAEL GOMEZ [address] [place] [address] Discharge instructions and discharge home medications reviewed with Patient and a copy given. All questions have been answered and understanding verbalized. Discontinued lines and drains: Port A Cath intact. Patient discharged to Home w/ hospice with Family Member via Wheelchair.
--- NOTE | 2018-05-15 19:16 | DS ---
DATE OF DISCHARGE: 05/15/2018 ADMISSION DIAGNOSES: 1. Chronic obstructive pulmonary disease exacerbation. 2. Lung cancer. DISCHARGE DIAGNOSES: 1. Resolving chronic obstructive pulmonary disease. 2. Chronic lung cancer. CONSULTS: Hospice, Pulmonary and GI. PROCEDURES: None. HOSPITAL COURSE: The patient is a pleasant middle-aged female who has lung cancer. She presented with respiratory failure and COPD and progression of her lung cancer. We gave her IV antibiotics empirically; gave her steroids, breathing treatments and oxygen. We got a CAT scan and some x-rays. I did review the scans with the family and Dr. Carrillo yesterday. The patient does have an impressive right upper lobe mass. It is encroaching on the right main stem bronchus. She also has some dysphagia, suspect it is encroaching on her esophagus as well. The patient and the family have chosen to go home with hospice. We did have her evaluated yesterday. She has been accepted with [facility]. I examined her this morning. Her heart tones were normal. She does have a cough. Her lungs are coarse, but this is her baseline. We plan to discharge with Replaced by [facility]. DISPOSITION: Home with [facility]. ACTIVITY: As tolerated. DIET: Low sodium. MEDICATIONS: Please see the MRAD. TOTAL TIME: 34 minutes. CYNDI CHILDERS DO DR: LACHO/johny JOB#: [id number] / [id number]
== END 2018-05-15 13:08 | disposition hospice, home (50) | DRG 189 ==
LOC: ER 20:39 → 6 SOUTH 22:32
PROVIDERS: ADMIT Internal Medicine; ATTEND Internal Medicine
DX: J96.20 Acute and chronic respiratory failure, unspecified whether with hypoxia or hypercapnia (principal); J44.1 Chronic obstructive pulmonary disease with (acute) exacerbation; J44.0 Chronic obstructive pulmonary disease with (acute) lower respiratory infection; C34.90 Malignant neoplasm of unspecified part of unspecified bronchus or lung; C79.9 Secondary malignant neoplasm of unspecified site; J20.9 Acute bronchitis, unspecified; E11.9 Type 2 diabetes mellitus without complications; E78.5 Hyperlipidemia, unspecified; F17.200 Nicotine dependence, unspecified, uncomplicated; G89.3 Neoplasm related pain (acute) (chronic); I10 Essential (primary) hypertension; K59.00 Constipation, unspecified; R13.10 Dysphagia, unspecified; Z51.5 Encounter for palliative care; Z79.01 Long term (current) use of anticoagulants; Z80.1 Family history of malignant neoplasm of trachea, bronchus and lung; Z82.49 Family history of ischemic heart disease and other diseases of the circulatory system; Z85.118 Personal history of other malignant neoplasm of bronchus and lung; Z92.21 Personal history of antineoplastic chemotherapy; Z92.3 Personal history of irradiation; Z66 Do not resuscitate
CPT/HCPCS: 36415; 71045; 80048; 80053; 83880; 84484; 85007; 85025; 87040; 94640; 94667; 94668; 94760; J0696; J1940; J2060; J2920; J2930; J3490; J7030; J7613; J7620; J7626; 99285-25